=== PATIENT | male | born 1950 | race Caucasian/White ===

== ENCOUNTER → 2016-05-25 | Outpatient (CLI) | payer OTHER ==
[2016-05-25 14:09] LABS: BASO % 0.7 %; BASO ABS # 0.05 K/uL (0-0.2); COMPLETE YES; HEMATOCRIT 44.1 % (42-52); IG% 0.6 %; LYMPH % 19.3 %; LYMPH ABS # 1.36 K/uL (1.2-3.4); MEAN CELL VOLUME 84.2 fL (80-100); MEAN CORPUSCULAR HEMOGLOBIN 28.8 pg (25-34); MEAN CORPUSCULAR HGB CONC 34.2 g/dl (32-36); MEAN PLATELET VOLUME 10.6 fL (7.4-10.4); MONO % 11.8 %; NEUT % 63.6 %; PLATELET COUNT 239 K/uL (130-400); RED BLOOD COUNT 5.24 M/uL (4.7-6.1); WHITE BLOOD COUNT 7.06 K/uL (4.8-10.8)
[2016-05-25 14:17] LABS: ALT/SGPT 35 U/L (12-78); AST/SGOT 17 U/L (15-37); BLOOD UREA NITROGEN 22 mg/dl (7-18); BUN/CREATININE RATIO 19.9 (10-20); CALCIUM 8.9 mg/dl (8.5-10.1); CARBON DIOXIDE 25 mmol/L (21-32); CHLORIDE 107 mmol/L (98-107); GLUCOSE 113 mg/dl (70-99); SODIUM 142 mmol/L (136-145)
[2016-05-25 14:23] LABS: ALB/GLOB RATIO 1.3 (0.9-2); ALKALINE PHOSPHATASE 98 U/L (45-117); CHOLESTEROL 152 mg/dl (0-200); CHOLESTEROL/HDL RATIO 3.2; HDL CHOLESTEROL 47 mg/dl; LDL CHOLESTEROL CALCULATED 81 mg/dl; TRIGLYCERIDES 119 mg/dl (0-150); VERY LOW DENSITY LIPOPROT CALC 24 mg/dl
== END | disposition home or self-care (01) ==
LOC: C.LABSPEC 13:11
PROVIDERS: ATTEND Family Medicine
DX: Z00.00 Encounter for general adult medical examination without abnormal findings (principal); I10 Essential (primary) hypertension; E78.2 Mixed hyperlipidemia; Z12.5 Encounter for screening for malignant neoplasm of prostate

== ENCOUNTER → 2016-11-23 | Outpatient (CLI) | payer OTHER ==
[2016-11-23 13:20] LABS: INR 2.3 (0.9-1.1)
== END | disposition home or self-care (01) ==
LOC: C.LABSPEC 12:53
PROVIDERS: ATTEND Family Medicine
DX: R35.0 Frequency of micturition (principal); Z79.01 Long term (current) use of anticoagulants; I10 Essential (primary) hypertension

== ENCOUNTER → 2017-02-04 | Outpatient (CLI) | payer OTHER ==
[2017-02-04 18:20] LABS: ALT/SGPT 33 U/L (12-78); AST/SGOT 21 U/L (15-37); BLOOD UREA NITROGEN 19 mg/dl (7-18); BUN/CREATININE RATIO 17.1 (10-20); CALCIUM 9.4 mg/dl (8.5-10.1); CARBON DIOXIDE 27 mmol/L (21-32); CHLORIDE 107 mmol/L (98-107); GLUCOSE 75 mg/dl (70-99); PARTIAL THROMBOPLASTIN RATIO 1.4; POTASSIUM 4.3 mmol/L (3.5-5.1); PROTHROMBIN TIME (PATIENT) 22.5 SECONDS (9.0-12.0); SODIUM 139 mmol/L (136-145)
[2017-02-04 18:23] LABS: ALB/GLOB RATIO 1.2 (0.9-2); ALKALINE PHOSPHATASE 101 U/L (45-117)
== END | disposition home or self-care (01) ==
LOC: C.LABSPEC 17:47
PROVIDERS: ATTEND Family Medicine
DX: S40.021A Contusion of right upper arm, initial encounter (principal); X58.XXXA Exposure to other specified factors, initial encounter